=== PATIENT | female | born 1990 | race Caucasian/White ===

== ENCOUNTER → 2022-03-30 | Day surgery (SDC) | payer OTHER ==
[~2022-03-30] MED LIST: FAMOTIDINE20 MG PO; MAG-OX 400 TAB400 MG PO; PROTONIX 40 MG40 M1 PO
== END | disposition home or self-care (01) ==
LOC: OR 07:51
DX: K31.A15 Gastric intestinal metaplasia without dysplasia, involving multiple sites (principal); K29.50 Unspecified chronic gastritis without bleeding; K31.9 Disease of stomach and duodenum, unspecified; K59.00 Constipation, unspecified; K21.9 Gastro-esophageal reflux disease without esophagitis; K82.4 Cholesterolosis of gallbladder; E66.3 Overweight; Z68.26 Body mass index [BMI] 26.0-26.9, adult; Z88.1 Allergy status to other antibiotic agents; Z79.899 Other long term (current) drug therapy
CPT/HCPCS: J3010; J7040